=== PATIENT | male | born 1955 | race Caucasian/White ===

== ENCOUNTER 2025-03-29 08:19 | Inpatient (IN) | payer BC, MEDICARE, SELFPAY ==
[2025-03-29] VITALS (79 sets, daily range): BP systolic 105–171; BP diastolic 42–77; PULSE 54–96; RESP 11–26; TEMP 36.4–36.7; O2SAT 88–96
--- NOTE | 2025-03-29 08:15 | RT.EKG_ITS ---
APPROVED REPORT Exam: Resting ECG Reason for Exam: open heart surgery Patient Location: E HR:59 bpm ECG Measurements Heart Rate 59 AXIS CA 217 P 75 QRSd 107 QRS 41 QT 451 T 175 QTc 448 Conclusion Sinus bradycardia...rate< 60 Borderline prolonged CA interval...CA >212, V-rate 50- 90 Probable left atrial enlargement...P >50mS, <-0.10mV V1 Repol abnrm suggests ischemia, lateral leads...ST dep, T neg, I aVL V5 V6 No Occlusion NE
--- NOTE | 2025-03-29 08:30 | DI.RAD_ITS ---
Exam(s) XR PORTABLE CHEST AP EXAM: XR PORTABLE CHEST AP CLINICAL HISTORY: Chest pain TECHNIQUE: 2D digital imaging was performed of the chest. One image was obtained. An AP view was obtained. COMPARISON: No exams were available for comparison FINDINGS: MEDIASTINUM: Normal. HEART: Cardiomegaly. There is a right atrial appendage clamp. The patient is status post CABG. PULMONARY VASCULATURE: Mild pulmonary venous congestion. LUNGS: There is atelectasis in the left lung base. The right lung is clear. PLEURAL SPACE: No pleural effusion or pneumothorax. BONE:Within normal limits for the patient's age. OTHER FINDINGS:Normal. IMPRESSION: 1. Left lower lobe atelectasis. 2. Mild pulmonary venous congestion. 3. The preliminary [facility] report was reviewed. DATA REPOSITORY: RADIATION DOSE DELIVERED:
--- NOTE | 2025-03-29 08:32 | W.ED.GENAD ---
Discharge Plan Disposition Patient Disposition: Admit to [facility] Discharge Details Clinical Impression: Acute heart failure with preserved ejection fraction (HFpEF), Pleural effusion, left, Multiple pulmonary nodules, Supratherapeutic INR Primary Care Provider: Unknown,Unknown ED Provider: Bryan Lopez Laporte Meds and New Rx's Prescriptions: No Action acetaminophen 325 mg capsule 325 - 650 mg PO Q6H PRN amiodarone 200 mg tablet 200 mg PO DAILY aspirin [Adult Aspirin Regimen] 81 mg tablet,delayed release (DR/EC) 81 mg PO DAILY atorvastatin [Lipitor] 80 mg tablet 80 mg PO QHS ezetimibe 10 mg tablet 10 mg PO DAILY hydromorphone [Dilaudid] 2 mg tablet 1 - 2 mg PO Q8H PRN insulin glargine [Basaglar KwikPen U-100 Insulin] 100 unit/mL (3 mL) insulin pen 36 unit subcut QAM metoprolol succinate 25 mg tablet extended release 24 hr 75 mg PO BID nifedipine [Procardia XL] 60 mg tablet extended release 24hr 60 mg PO DAILY omeprazole 20 mg tablet,delayed release (DR/EC) 20 mg PO DAILY warfarin 1 mg tablet 1 - 7 mg PO DAILY HPI General Date/Time Provider Initiated Documentation: 03/29/25 08:32. HPI Narrative: MDM This is an afebrile and not tachycardic 69-year-old male with weight gain unintentionally of 8 pounds in 1 day with recent open heart surgery concerning for the possibility of acute CHF for which patient will undergo labs and imaging based on D-dimer results. No black or bloody stools to suggest acute anemia. Soft nontender abdomen so not suspicious for intra-abdominal infection. No dysuria or frequency to suggest UTI. No chest pain to suggest ACS. ECG shows a sinus bradycardia with first-degree AV block and interventricular conduction delay. QTc within normal limits. T wave inversions V5 V6 no prior for comparison. No acute injury pattern. No cough to suggest pneumonia. No calf pain to suggest DVT. Patient does have trace pericardial effusion which is not unexpected given recent surgery. He is not tachycardic hypoxic or hypotensive so not suspicious for tamponade. 9:37 AM Markedly elevated D-dimer greater than 2000. CBC with microcytic anemia. No thrombocytopenia. No leukocytosis. Hemoglobin 9.4 g/dL. Comprehensive metabolic panel with creatinine of 1.27. Mildly elevated LFTs. Anion gap 13. Bicarb 17. Mild hyperglycemia glucose 284 mg/dL. Will add on a venous blood gas and beta hydroxybutyrate. 10:30 AM Venous blood gas with no acidemia nor hypercarbia. 10:37 AM Elevated proBNP at 2600. Patient had 2 troponins at 175 and 165. Given delta less than 11 no concern for acute injury. Supratherapeutic INR at 3.5. Normal reassuring magnesium 1.6. Beta hydroxybutyrate 1 mmol/L reassuring against DKA. 1:15 PM Final read of CT scan showing moderate left-sided pleural effusion with adjacent infiltrate representing atelectasis or pneumonia. In the absence of cough and not suspicious for pneumonia. Patient also has small right-sided pulmonary nodules. I notified patient of his pulmonary nodules. 3:15 PM Patient spit out 1800 cc of urine thus far. I have [place] heard [place] [facility] [place] Given need for diuresis and hypoxia with ambulation I feel the patient requires hospitalization. I updated patient's sister and the patient and they felt comfortable with this plan. 4:15 PM Was in touch with Dr. Mahmood from cardiology at [facility]. He did not feel patient required transfer. Renal function is essentially at baseline with eGFR approximately 3 weeks ago at 65 and [facility] [place] system at 56 no chest pain presently. I was in touch with Dr. Tyler from the hospitalist team. He will place holding orders and patient will be admitted by the it technical architect. Will sign patient out to Dr. Reeder in the emergency department. I updated patient at bedside. HPI This is a patient with a history of coronary artery disease presenting with weight gain, shortness of breath, and diabetes. The patient underwent open heart surgery on 03/02/2025 for coronary artery disease. Post-discharge instructions included monitoring for weight gain exceeding 3 pounds in a day, which he has been unable to report due to communication issues. He experienced an 8-pound weight increase within a single day, accompanied by a lack of bowel movement or urination for approximately 12 hours. He reports a sensation of bloating in his stomach but no associated pain. He has noticed increased swelling in his left leg compared to the right, with no pain at the graft site. He is compliant with his medication regimen and reports no fevers, blood clots in his legs or lungs, or chest pain. However, he does experience sternal pain at the incision site. The patient reports difficulty in ascending stairs due to shortness of breath, attributing this to his recovery process from the surgery. He is not experiencing shortness of breath at rest and is making efforts to regain his stamina and conditioning through daily walks. The patient is diabetic and his blood sugar levels have been fluctuating. PAST SURGICAL HISTORY: Open heart surgery on 03/02/2025 for coronary artery disease. Exam General: Well-appearing in no acute distress speaking in complete sentences. Head: Normocephalic, atraumatic. Eye: Extraocular eye movements intact. No conjunctival injection. No scleral icterus. Ear, nose, mouth, throat: Grossly normal inspection. Normal voice, handling secretions normally. Neck: Trachea midline. Cardiovascular: Well-perfused distal extremities. Regular rate and rhythm Respiratory: Nonlabored respiration. Clear lungs bilaterally. Gastrointestinal: Nondistended abdomen. Musculoskeletal: Mild 1+ lower extremity nonpitting edema left greater than right. Moving all 4 extremities spontaneously. Skin: Normal for age and race, grossly normal temperature and turgor. No acute rash. Neurologic: Alert and appropriate, no apparent acute deficits. Related Data Home Medications ?Medication ?Instructions ?Recorded ?Confirmed acetaminophen 325 mg capsule 325 - 650 mg PO Q6H PRN 03/29/25 03/29/25 amiodarone 200 mg tablet 200 mg PO DAILY 03/29/25 03/29/25 aspirin 81 mg tablet,delayed 81 mg PO DAILY 03/29/25 03/29/25 release (Adult Aspirin Regimen) atorvastatin 80 mg tablet (Lipitor) 80 mg PO QHS 03/29/25 03/29/25 ezetimibe 10 mg tablet 10 mg PO DAILY 03/29/25 03/29/25 hydromorphone 2 mg tablet 1 - 2 mg PO Q8H PRN 03/29/25 03/29/25 (Dilaudid) insulin glargine 100 unit/mL (3 36 unit subcut QAM 03/29/25 03/29/25 mL) subcutaneous pen (Basaglar KwikPen U-100 Insulin) metoprolol succinate 25 mg 75 mg PO BID 03/29/25 03/29/25 tablet,extended release 24 hr nifedipine 60 mg tablet,extended 60 mg PO DAILY 12/21/25 12/21/25 release 24 hr (Procardia XL) omeprazole 20 mg tablet,delayed 20 mg PO DAILY 03/29/25 03/29/25 release warfarin 1 mg tablet 1 - 7 mg PO DAILY 03/29/25 03/29/25 Allergies Allergy/AdvReac Type Severity Reaction Status Date / Time shellfish derived Allergy Severe Anaphylaxis Verified 03/29/25 09:07 Penicillins AdvReac Unknown Unknown Verified 03/29/25 09:06 PFSH All Active Problems (Updated 03/29/25 @ 15:14 by Bryan Lopez MD) Supratherapeutic INR (Acute) Multiple pulmonary nodules (Acute) Pleural effusion, left (Acute) Acute heart failure with preserved ejection fraction (HFpEF) (Acute) Social History Smoking/Tobacco Use Status: Never Smoking risk assessment performed?: Yes Alcohol Intake: never Drug use: Never Substance use type: does not use POCUS Exam (ED) Limited Cardiac Exam DATE OF EXAM: 03/29/25 TIME OF EXAM: 10:42 PROVIDER THAT PERFORMED THE STUDY: Bryan Lopez IS THIS A REPEAT EXAM DURING THIS ENCOUNTER: no REASON FOR EXAM: Dyspnea VISUALIZED STRUCTURES: Four Chambers, Left ventricle and LVOT VIEW OBTAINED: Apical 4-Chamber, Parasternal long-axis and Subxiphoid PERTINENT FINDINGS/IMPRESSION: Pericardial effusion; No RV dilation DIFFERENTIAL DIAGNOSES: Aortic outflow track less than 4 cm, good squeeze, RV less than LV, trace pericardial effusion. No B-lines bilaterally. Exam complete
[2025-03-29 08:52] LABS: Abs Immature Grans 0.02 10^3/uL (0.0-0.06); HCT 29.5 % (40.0-50.0); HGB 9.4 g/dL (13.5-17.5); Immature Grans % 0.3 %; MCH 24.9 pg (27.0-33.0); MCHC 31.9 % (32.0-36.0); MCV 78 fL (80-95); MPV 9.7 fL (8.0-11.0); Platelet Count 331 10^3/uL (130-400); RBC 3.78 10^6/uL (4.36-5.78); RDW 14.9 % (11.8-14.1); RDW-SD 42.6 fL; WBC 6.92 10^3/uL (4.4-10.8)
[2025-03-29 09:08] LABS: Magnesium 1.6 mg/dL (1.6-2.6)
[2025-03-29 09:10] LABS: ALT 56 U/L (10-49); AST 38 U/L (<34); Albumin 4.3 g/dL (3.2-5.0); Alkaline Phosphatase 183 U/L (46-116); Anion Gap 13.5 mmol/L (3-11); BUN 24 mg/dL (9-23); Bilirubin, Total 0.6 mg/dL (0.2-1.2); CO2 17.5 mmol/L (20.0-31.0); Calcium 8.9 mg/dL (8.3-10.6); Chloride 100 mmol/L (98-107); Glucose 284 mg/dL (74-106); Potassium 4.2 mmol/L (3.5-5.1); Sodium 131 mmol/L (136-145); Total Protein 6.9 g/dL (5.7-8.2)
[2025-03-29 09:11] LABS: INR 3.5 (0.9-1.1); Prothrombin Time 32.3 sec (9.1-11.1)
[2025-03-29 09:20] LABS: D-Dimer 1460 ng/mlFEU (<500)
--- NOTE | 2025-03-29 09:30 | DI.CT_ITS ---
Exam(s) CT CHEST PE CTA EXAM: CT CHEST PE CTA CLINICAL HISTORY: Shortness of breath postop. TECHNIQUE: Imaging Protocol: Axial CT angiography was performed with multi- slice acquisition and multi-planar and/or 3D reconstructions. Lung Computer Aided Detection (CAD) was utilized. CONTRAST MATERIAL: Intravenous: Omnipaque 350 contrast volume:100 mL COMPARISON: CR,XR XR PORTABLE CHEST AP from 03/29/2025 FINDINGS: Tracheobronchial tree: Patent where visualized. No bronchiectasis. Pulmonary parenchyma: There are few noncalcified pulmonary nodules. The largest is in the periphery of the right lower lobe measures 5 mm. There is a moderate size left pleural effusion and subjacent infiltrate which may represent atelectasis. Pneumonia cannot be entirely excluded. There is atelectasis in the right lower lobe. Pulmonary Arteries: No evidence of filling defect to suggest pulmonary emboli. Mediastinum and Lyssa: No dominant adenopathy or fluid collection. The esophagus is unremarkable. Visualized thyroid gland: Unremarkable. Pleura: There is no evidence of a pneumothorax. No significant right pleural effusion is seen. Heart: The heart is enlarged. Coronary artery calcification is present. The patient is status post CABG. There is a small pericardial effusion. There is a left atrial appendage clip. Aorta: Due to the timing of the bolus, the thoracic aorta is not adequately opacified. There is atherosclerotic calcification present. The ascending thoracic aorta measures 4.2 x 3.9 cm. Upper abdomen: There appear to be stones within the gallbladder. Soft tissues: Unremarkable. Bones: The patient is status post median sternotomy. Postsurgical changes are seen in the midline of the chest.There are subacute fractures involving the posterior aspects of the right 1st and 2nd ribs. IMPRESSION: 1. There is no evidence of a pulmonary embolism. 2. Moderate left pleural effusion and subjacent infiltrate which may represent atelectasis or pneumonia. 3. Small right-sided pulmonary nodules. The largest measures 5 mm. For multiple solid noncalcified nodules smaller than 6 mm in diameter, no routine follow-up is recommended (grade 2B; weak recommendation, moderate- quality evidence). (Kelechi et al., 2017) 4. The preliminary [facility] report was reviewed. RADIATION DOSE DELIVERED: 164.49mGy.cm Total DLP DATA REPOSITORY: All CT scans at this facility are submitted to the National Radiology Data Registry (NRDR) Dose Index Registry (DIR) with the [employer] (A[employer]). RADIATION OPTIMIZATION: All CT scans at this facility use at least one of these dose optimization techniques: automated exposure control; mA and/or kV adjustment per patient size (includes targeted exams where dose is matched to clinical indication); or iterative reconstruction.
[2025-03-29 09:43] LABS: Troponin I 175 ng/L (<54)
[2025-03-29] MEDS: Normal Saline - Diluent 50 ML VIAL IJ (09:49)
[2025-03-29] MEDS: Normal Saline Flush 10 ML SYR IVP (09:49)
[2025-03-29] MEDS: Omnipaque 350 MG/ML 100 ML BTL IJ (09:50)
[2025-03-29 09:55] LABS: BE (Venous) -5 mmol/L (-2-3); HCO3 (Venous) 20 mmol/L (23-28); O2 Sat (Venous) 38 %; TCO2 (Venous) 19 mmol/L (24-29); pCO2 (Venous) 34 mmHg (41-51); pO2 (Venous) 25 mmHg
--- NOTE | 2025-03-29 09:56 | DI.[facility]_ITS ---
PROCEDURE INFORMATION: Exam: XR Chest Exam date and time: 03/29/2025 9:29 AM Age: 69 years old Clinical indication: Other: Chest pain TECHNIQUE: Imaging protocol: Radiologic exam of the chest. Views: 1 view. COMPARISON: No relevant prior studies available. FINDINGS: Limitations: Low lung volumes. Portable technique. Lungs: Prominence of the central pulmonary vasculature. Pleural spaces: Trace blunting of the costophrenic sulci. No pneumothorax. Heart/Mediastinum: Status post CABG. Left atrial appendage clip. Mild cardiomegaly. Bones/joints: Median sternotomy wires. IMPRESSION: 1. Pulmonary vascular congestion. 2. Trace bilateral pleural effusions. Dictated and Authenticated by: Lulu Carey MD. Orderin John Adams MD
--- NOTE | 2025-03-29 10:27 | DI.[facility]_ITS ---
PROCEDURE INFORMATION: Exam: CTA Chest With Contrast Exam date and time: 03/29/2025 9:56 AM Age: 69 years old Clinical indication: Other: Shortness of breath postop; Prior surgery; Surgery date: 1-6 months; Surgery type: Open heart surgery 1 month ago TECHNIQUE: Imaging protocol: Computed tomographic angiography of the chest with contrast. Exam focused on the arteries. 3D rendering (Not supervised by radiologist): MIP and/or 3D reconstructed images were created by the technologist. Contrast material: OMNIPAUQE 350; Contrast volume: 100 ml; Contrast route: INTRAVENOUS (IV); COMPARISON: CR XR PORTABLE CHEST AP 03/29/2025 9:29 AM FINDINGS: Pulmonary arteries: Normal. No pulmonary emboli. Aorta: No aortic aneurysm. Limited evaluation for aortic dissection due to timing of the contrast bolus which was optimized for detection of pulmonary emboli. Lungs: Ground-glass attenuation in the lungs. Mild smooth thickening of the interlobular septa. Moderate compressive atelectasis/partial collapse of the left lower lobe. No suspicious pulmonary nodules. Pleural spaces: Small left and trace right pleural effusions. No pneumothorax. Heart: [id number] cardiomegaly. Small pericardial effusion. Left atrial appendage clip. Coronary arteries: Status post CABG. Lymph nodes: Unremarkable. No enlarged lymph nodes. Bones/joints: Median sternotomy wires. No acute or suspicious osseous abnormalities. Anterior flowing bridging osteophytes of the spine, consistent with diffuse idiopathic skeletal hyperostosis (DISH). Soft tissues: Unremarkable. IMPRESSION: 1. No evidence of pulmonary embolism. 2. Mild CHF. 3. [id number] cardiomegaly. 4. Small left and trace right pleural effusions. 5. Moderate compressive atelectasis/partial collapse of the left lower lobe. Dictated and Authenticated by: Lulu Carey MD. Orderin John Adams MD
[2025-03-29 10:30] LABS: Lab Add On Test DONE
[2025-03-29 10:34] LABS: Troponin I 165 ng/L (<54)
[2025-03-29 10:45] LABS: Beta Hydroxybutyrate 0.66 mmol/L (0.02-0.27)
[2025-03-29] MEDS: Potassium Bicarbonate/Cit AC 25 MEQ TABLET.EFF 50 MEQ PO (13:04)
[2025-03-29] MEDS: Furosemide 40 MG/4 ML VIAL IVP (13:04)
--- NOTE | 2025-03-29 17:21 | W.PC.ACHO ---
Registration Status: REG ER Primary Language: Preferred Language: ED Information & Data Chief Complaint RespSymp 03/29/25 08:34 Chief Complaint RespSymp 03/29/25 08:23 Triage Note Pt complaining of having a 03/29/25 08:23 weight gain of 8 lbs in 1 day. PT had open heart surgery at [facility] on 03/02/25. Pt complaining of SOB with activity Most Recent Vital Signs Temperature 97.5 F L 03/29/25 08:33 Temperature Source Oral 03/29/25 08:33 Pulse 68 03/29/25 17:01 Pulse 77 03/29/25 17:01 Respiratory Rate 22 03/29/25 17:01 Respiratory Effort Short of Breath 03/29/25 08:47 Blood Pressure 132/64 03/29/25 17:01 Blood Pressure Mean 89 03/29/25 17:01 Pulse Oximetry 88 L 03/29/25 10:30 Oxygen Delivery Method Nasal Cannula 03/29/25 09:52 Oxygen Flow Rate 1 03/29/25 09:52 Allergies shellfish derived Allergy (Severe, Verified 03/29/25 09:07) Anaphylaxis Penicillins Adverse Reaction (Unknown, Verified 03/29/25 09:06) Unknown when he was 5 years old Precautions Isolation Standard precaution 03/29/25 08:34 Active Medications Generic Name Dose Route Start Last Admin Trade Name Freq PRN Reason Stop Dose Admin Iohexol 100 ml 03/29/25 10:00 03/29/25 09:50 Omnipaque 350 Mg/Ml 100 Ml Btl IJ 04/28/25 23:59 100 ml DIRECTED MAGALY Administration Sodium Chloride 0 ml 03/29/25 09:48 03/29/25 09:49 Normal Saline Flush 10 Ml Syr IVP 10 ml PRN PRN Administration Sodium Chloride 50 ml 03/29/25 10:00 03/29/25 09:49 Normal Saline - Diluent 50 Ml Vial IJ 50 ml DIRECTED MAGALY Administration IV IV Catheter Type [Right Saline Lock Antecubital] IV Catheter Gauge [Right 18 Antecubital] Diet Orders Category Date Time Status Heart Healthy Eating [DIET] Nutrition 03/29/25 Dinner Active Diagnostics 03/29/25 03/29/25 Range/Units 09:43 08:44 WBC 6.92 (4.4-10.8) 10^3/uL RBC 3.78 L (4.36-5.78) 10^6/uL Hgb 9.4 L (13.5-17.5) g/dL Hct 29.5 L (40.0-50.0) % MCV 78 L (80-95) fL MCH 24.9 L (27.0-33.0) pg MCHC 31.9 L (32.0-36.0) % RDW 14.9 H (11.8-14.1) % Plt Count 331 (130-400) 10^3/uL MPV 9.7 (8.0-11.0) fL Immature Gran % 0.3 % Neutrophils % 76.0 % Lymphocytes % 12.7 % Monocytes % 8.5 % Eosinophils % 1.6 % Basophils % 0.9 % Nucleated RBC % 0.0 (0.0-0.3) % Absolute Neutrophils 5.26 (1.2-6.7) 10^3/uL Absolute Lymphocytes 0.88 L (1.2-3.4) 10^3/uL Absolute Monocytes 0.59 (0.1-0.8) 10^3/uL Absolute Eosinophils 0.11 (0.0-0.7) 10^3/uL Absolute Basophils 0.06 (0.0-0.2) 10^3/uL PT 32.3 H (9.1-11.1) sec INR 3.5 H (0.9-1.1) D-Dimer 1460 H (<500) ng/mlFEU VBG pH 7.38 (7.31-7.41) VBG pCO2 34 L (41-51) mmHg VBG pO2 25 mmHg VBG HCO3 20 L (23-28) mmol/L VBG Total CO2 19 L (24-29) mmol/L VBG O2 Saturation 38 % VBG Base Excess -5 L (-2-3) mmol/L Sodium 131 L (136-145) mmol/L Potassium 4.2 (3.5-5.1) mmol/L Chloride 100 (98-107) mmol/L Carbon Dioxide 17.5 L (20.0-31.0) mmol/L Anion Gap 13.5 H (3-11) mmol/L BUN 24 H (9-23) mg/dL Creatinine 1.27 H (0.73-1.18) mg/dL Est GFR (CKD-EPI 2020) 56.01 (mL/min/1.73m2) Glucose 284 H (74-106) mg/dL Calcium 8.9 (8.3-10.6) mg/dL Magnesium 1.6 (1.6-2.6) mg/dL Total Bilirubin 0.6 (0.2-1.2) mg/dL AST 38 H (<34) U/L ALT 56 H (10-49) U/L Alkaline Phosphatase 183 H (46-116) U/L Troponin I 165 H* 175 H* (<54) ng/L NT-Pro-B Natriuret Pep 2622 H (<300) pg/mL Total Protein 6.9 (5.7-8.2) g/dL Albumin 4.3 (3.2-5.0) g/dL Beta-Hydroxybutyrate 0.66 H (0.02-0.27) mmol/L Add-On Test Request DONE Intake and Output - 24 Hour Total 03/29/25 08:19 thru 03/29/25 13:14 Intake Total 10 Output Total 1950 Balance -1940 Weight 216 lb 12.8 oz Intake: IV 10 Output: Urine 1950 Other: Urine Color Pale Urine Appearance Clear Urine Odor Normal Falls Risk Assessment Contributing Factors No Factors 03/29/25 08:47 Fall Total Score 0 03/29/25 08:47 Level of Risk Standard/Low Risk 03/29/25 08:47 Attestation Statement: By documenting the first initial, last name, and credentials of the reporting nurse below, both parties acknowledge that all relevant information regarding the patient handoff has been communicated, and that all questions have been addressed to ensure continuity and safety of care. Additional Patient Information/Comments: Report Received From: Daniela Costa RN
[2025-03-29] MEDS: Ondansetron 4 MG/2 ML VIAL IVP (20:26)
[2025-03-29] MEDS: Metoprolol CR 25 MG TABCR 75 MG PO (20:31)
[2025-03-29] MEDS: Atorvastatin 40 MG TAB 80 MG PO (20:31)
--- NOTE | 2025-03-29 22:31 | W.PM.HP.N ---
Date of service: 03/29/25 Time of Service: 22:31 Assessment and Plan Assessment and plan (1) Acute heart failure with preserved ejection fraction (HFpEF): Status: Acute Assessment and plan: Patient is already improving regards to symptomology with diuretic use. Continue with diuresis Daily weights monitoring for improvements. Patient is also on metoprolol and nifedipine. will consider calling patient's bid clerk in the a.m. in regards to optimization of his heart failure treatment. Specifically whether he should be on an SGL 2 I inhibitor, an ARB, and an ANRi. Concerning the patient's current BNP is elevated to 2622 will also order an echocardiogram. (2) Supratherapeutic INR: Status: Acute Assessment and plan: INR is currently 3.5. INR goal should be between 2 and 3. (3) Pleural effusion, left: Status: Acute Assessment and plan: Noted, should improve with diuresis. (4) Multiple pulmonary nodules: Status: Acute Assessment and plan: CT chest results 1. There is no evidence of a pulmonary embolism. 2. Moderate left pleural effusion and subjacent infiltrate which may represent atelectasis or pneumonia. 3. Small right-sided pulmonary nodules. The largest measures 5 mm. For multiple solid noncalcified nodules smaller than 6 mm in diameter, no routine follow-up is recommended (grade 2B; weak recommendation, moderate-quality evidence). (Kelechi et al., 2017) Per ED note, pt is aware of these findings (5) Dyslipidemia: Status: Acute Assessment and plan: Continue with atorvastatin 80 mg daily (6) Diabetes: Status: Chronic Assessment and plan: Patient is on no home Lantus 36 units. Patient does his own sliding scale At home. Will check an A1c add glucometers and sliding scale coverage. I do wonder whether patient is not on an AARON or an ARB. Will check a urinalysis to monitor for proteinuria. (7) Atrial fibrillation: Status: Chronic Assessment and plan: Patient is on amiodarone and is also on Coumadin. He is rate controlled. History of Present Illness History of Present Illness Chief Complaint: NUNES Narrative: Mr Fonseca is a 69-year-old gentleman who had a triple bypass at [facility] approximately 1 month ago And presents with worsening shortness of breath as well as increased weight over the last 24 to 48 hours. Patient states that since his surgery in very compliant with his diet recommendations but over the last 2 days he did eat pizza as well as a chicken Parmesan sandwich. Patient states that since then he has had increasing weight gain and dyspnea on exertion. Patient states that he has been taking his medications as prescribed. Patient does have a history of A-fib and was only started on Coumadin post surgery. He does have a remote history of cardiac stents placed in 2019. Upon my interview with the patient he states that he has already improved and his symptoms and feels much less short of breath. Nursing staff do note that the patient rhythm has changed from normal sinus to A-fib. Patient is a full code Review of Systems All systems reviewed & are unremarkable except as noted in HPI and below PFSH All Active Problems (Updated 03/29/25 @ 22:45 by Vishal Root MD) Atrial fibrillation (Chronic) Diabetes (Chronic) Dyslipidemia (Acute) Supratherapeutic INR (Acute) Multiple pulmonary nodules (Acute) Pleural effusion, left (Acute) Acute heart failure with preserved ejection fraction (HFpEF) (Acute) Social History Smoking/Tobacco Use Status: Never Smoking risk assessment performed?: Yes Alcohol Intake: never Drug use: Never Substance use type: does not use Housing: apartment Meds Allergies and Home Medications Allergies Allergy/AdvReac Type Severity Reaction Status Date / Time shellfish derived Allergy Severe Anaphylaxis Verified 03/29/25 09:07 Penicillins AdvReac Unknown Unknown Verified 03/29/25 09:06 Home Medications ?Medication ?Instructions ?Recorded ?Confirmed ?Type acetaminophen 325 mg capsule 325 - 650 mg PO Q6H PRN 03/29/25 03/29/25 History amiodarone 200 mg tablet 200 mg PO DAILY 03/29/25 03/29/25 History aspirin 81 mg tablet,delayed 81 mg PO DAILY 03/29/25 03/29/25 History release (Adult Aspirin Regimen) atorvastatin 80 mg tablet (Lipitor) 80 mg PO QHS 03/29/25 03/29/25 History ezetimibe 10 mg tablet 10 mg PO DAILY 03/29/25 03/29/25 History hydromorphone 2 mg tablet 1 - 2 mg PO Q8H PRN 03/29/25 03/29/25 History (Dilaudid) insulin glargine 100 unit/mL (3 36 unit subcut QAM 03/29/25 03/29/25 History mL) subcutaneous pen (Basaglar KwikPen U-100 Insulin) metoprolol succinate 25 mg 75 mg PO BID 03/29/25 03/29/25 History tablet,extended release 24 hr nifedipine 60 mg tablet,extended 60 mg PO DAILY 03/29/25 03/29/25 History release 24 hr (Procardia XL) omeprazole 20 mg tablet,delayed 20 mg PO DAILY 03/29/25 03/29/25 History release warfarin 1 mg tablet 1 - 7 mg PO DAILY 03/29/25 03/29/25 History Exam Narrative Exam Narrative: HEENT normocephalic atraumatic mucous membranes moist oropharynx is clear Neck no lymphadenopathy no JVD Cardiovascular irregularly irregular no murmur rubs gallops Lungs clear to auscultation bilaterally good air exchange no accessory muscle use Abdomen with mild protuberance Extremities 1+ lower extremity edema bilaterally Neurologic nonfocal Psych alert and oriented x 3 Results Labs 03/29/25 08:44 03/29/25 08:44 Labs: Laboratory Results - last 24 hr 03/29/25 03/29/25 08:44 09:43 WBC 6.92 RBC 3.78 L Hgb 9.4 L Hct 29.5 L MCV 78 L MCH 24.9 L MCHC 31.9 L RDW 14.9 H Plt Count 331 MPV 9.7 Immature Gran % 0.3 Neutrophils % 76.0 Lymphocytes % 12.7 Monocytes % 8.5 Eosinophils % 1.6 Basophils % 0.9 Nucleated RBC % 0.0 Absolute Neutrophils 5.26 Absolute Lymphocytes 0.88 L Absolute Monocytes 0.59 Absolute Eosinophils 0.11 Absolute Basophils 0.06 PT 32.3 H INR 3.5 H D-Dimer 1460 H VBG pH 7.38 VBG pCO2 34 L VBG pO2 25 VBG HCO3 20 L VBG Total CO2 19 L VBG O2 Saturation 38 VBG Base Excess -5 L Sodium 131 L Potassium 4.2 Chloride 100 Carbon Dioxide 17.5 L Anion Gap 13.5 H BUN 24 H Creatinine 1.27 H Est GFR (CKD-EPI 2020) 56.01 Glucose 284 H Calcium 8.9 Magnesium 1.6 Total Bilirubin 0.6 AST 38 H ALT 56 H Alkaline Phosphatase 183 H Troponin I 175 H* 165 H* NT-Pro-B Natriuret Pep 2622 H Total Protein 6.9 Albumin 4.3 Beta-Hydroxybutyrate 0.66 H Add-On Test Request DONE Last Vital Signs Temp 36.7 C 03/29/25 20:35 Pulse 77 03/29/25 20:35 Resp 18 03/29/25 20:35 BP 142/59 H 03/29/25 20:35 Pulse Ox 92 03/29/25 20:35 VTE Prohylaxis Risk Level: Moderate/High Risk Contraindications: None Prophylaxis: Pharmacologic Time Spent Time spent with Patient: 40-54 minutes Time was spent: preparing to see the patient(eg.review tests), obtaining and/or reviewing separately otained hiistory, ordering medications,tests, procedures, referring, communicating with other health family day carer, indepentently interpreting results, counseling the patient and care coordination
[2025-03-29] MEDS: Zolpidem 5 MG TAB PO (23:30)
[2025-03-29 23:43] LABS: Hemoglobin A1C 8.8 % (<5.7)
[2025-03-30] VITALS (9 sets, daily range): BP systolic 105–133; BP diastolic 53–64; PULSE 54–61; RESP 16–18; TEMP 36.7–37.2; O2SAT 89–95
[2025-03-30] MEDS: MORPHine 2 MG/ML SYR IVP (00:37)
[2025-03-30 01:13] LABS: Glucose Negative (Negative)
[2025-03-30 06:24] LABS: HCT 26.4 % (40.0-50.0); HGB 8.5 g/dL (13.5-17.5)
[2025-03-30 06:38] LABS: INR 3.6 (0.9-1.1); Prothrombin Time 33.8 sec (9.1-11.1)
[2025-03-30] MEDS: Omeprazole 20 MG CAPCR PO (06:38)
[2025-03-30 06:48] LABS: ALT 50 U/L (10-49); AST 29 U/L (<34); Albumin 3.7 g/dL (3.2-5.0); Alkaline Phosphatase 148 U/L (46-116); Anion Gap 10.2 mmol/L (3-11); BUN 17 mg/dL (9-23); Bilirubin, Total 0.5 mg/dL (0.2-1.2); CO2 24.8 mmol/L (20.0-31.0); Calcium 8.8 mg/dL (8.3-10.6); Chloride 105 mmol/L (98-107); Glucose 124 mg/dL (74-106); Potassium 3.9 mmol/L (3.5-5.1); Sodium 140 mmol/L (136-145); Total Protein 5.9 g/dL (5.7-8.2)
--- NOTE | 2025-03-30 08:34 | INITIAL_ITS ---
Date of service: 03/30/25 Time of Service: 08:34 Care Management Initial Assmt Initial Assessment Reason for Hospitalization: CHF Functional Status/Living Situation Patient Presentation: Yariel was sitting up in a chair when CM met with him. He had just completed walking a loop or two on the unit and was slightly short of breath. Yariel shared that he just had bypass surgery about a month ago and has been recuperating at his sister's home. He explained that she is a nurse and has taken really good care of him. His sister owns a ski home in [place] and she and the family have come to [place] for the holidays. Yariel lives alone in an apartment in [place], [place]. He is retired from the [employer]. He is independent at baseline and does not receive any community services. He did receive nursing for a while post- operatively but no longer needs those services. Town of Residence: [place], [place] Resides with: Alone Significant Other/Family: Out of area (Yariel is from [place] as well) Natural Supports: family Employment Status: Retired Instrumental Activities of Daily Living (ADLs): Independent Medications Medication Management: No Issues/Barriers identified Physical Functioning/Mobility Assistive Device: none Advance Directives Advance Directives: Do you have an Advance Directive: Y , 09:56 AD On File at [facility]: N 03/29/25, 09:56 Date Asked 03/29/25 03/29/25, 08:27 AD Date Reviewed COLST On File at [facility] COLST Date Scanned Code Status Resuscitation Status Full Code Portal Pt does not currently have a portal and education provided: No Portal Education: Patient declined Insurance Coverage/Financial Issues Insurance: BC/BS out of state Care Team Visit Care Team Role Provider Type Unknown Unknown Primary Care Provider STAFF PHYSICIAN Maty Reyes RDN, CDCES Other Providers MANAGER CIVIL Fritz Lazo RDN Other Providers MANAGER CIVIL Chano Reeder MD Emergency Provider [facility] STAFF PHYSICIAN Bryan Tyler Admit Provider [facility] STAFF PHYSICIAN Attending Provider Discharge Potential Discharge Needs: PCP F/U Appt Anticipated Barriers to Discharge: None Identified Patient/Family Education Needs: Review discharge instructions, discuss Ask Me Three Transportation: Private vehicle Plan: Anticipate Yariel will be discharged home with no new services when medically cleared. He will follow up with his PCP and community providers in [place] and will transport via private vehicle. CM will follow and continue to assess for discharge needs. Social Determinants of Health Screening Social Determinants of health last assessed in clinic: 03/30/25 Will the Patient Participate in the Screening?: Yes Do you worry about having a steady place to live?: no Problems where you live: no known problems In the past 12 months, have you had to go without electric, gas, oil or water in your home?: no 1. Within the past 12 months, we worried whether our food would run out before we got money to buy more.: Never true 2. Within the past 12 months, the food we bought just didn't last and we didn't have money to get more.: Never true Has lack of transportation kept you from medical appointments or from doing things needed for daily living?: no Has anyone in your life made you feel unsafe or unsupported?: no How hard is it for you to pay for the very basics like food, housing, medical care, and heating? Would you say it is:: Not hard at all Do you want help finding or keeping work or a job?: I do not need or want help If for any reason you need help with day-to-day activities such as bathing, preparing meals, shopping, managing finances, etc., do you get the help you need?: I get all the help I need How often do you feel lonely or isolated from those around you?: Never Do you speak a language other than Hebrew at home?: No Does the patient want assistance with any of the above?: No PFSH All Active Problems (Updated 03/29/25 @ 22:45 by Vihsal Root MD) Atrial fibrillation (Chronic) Diabetes (Chronic) Dyslipidemia (Acute) Supratherapeutic INR (Acute) Multiple pulmonary nodules (Acute) Pleural effusion, left (Acute) Acute heart failure with preserved ejection fraction (HFpEF) (Acute) Social History Smoking/Tobacco Use Status: Never Smoking risk assessment performed?: Yes Alcohol Intake: never Drug use: Never Substance use type: does not use Housing: apartment
[2025-03-30] MEDS: Insulin Glargine 300 UNITS/3 ML PEN 30 UNITS SC (08:39)
[2025-03-30] MEDS: Insulin Aspart 300 UNITS/3 ML PEN SC ×3 (08:40→16:49)
[2025-03-30] MEDS: Ezetimibe 10 MG TAB PO (08:56)
[2025-03-30] MEDS: NIFEdipine-CR 30 MG TABCR 60 MG PO (08:56)
[2025-03-30] MEDS: Amiodarone 200 MG TAB PO (08:57)
[2025-03-30] MEDS: Aspirin E.C. 81 MG TABEC PO (08:57)
[2025-03-30] MEDS: Metoprolol CR 25 MG TABCR 75 MG PO ×2 (08:57→20:51)
[2025-03-30] MEDS: Furosemide 40 MG/4 ML VIAL IVP ×2 (09:07→16:27)
--- NOTE | 2025-03-30 09:44 | TELEFU_ITS ---
Date of service: 03/30/25 Time of Service: 09:30 Nutrition Note NOTE: Received consult request re: diabetes ed/mgt. 69yo male. 94kg. 68 with current BMI of 31.5. IBW: 68.4kg. AjBW:78.6 Being treated for acute heart failure A1C 03/29/25 8.8%. Meds at home include 36units insulin glargine QAM, daily warfarin, ezetimibe and atorbastatin. On asprin therapy. Pt also corrects at meals with Novolog and instructed to add another 4 units if having high carb meal - he just received new insulin protocol/scale from round cutter operator at [facility] last week Electrolytes wnl today. Hgb/Hct 8.5/26.4 today. Fasting glucose 124 today and 165 at breakfast. BHC level elevated yesterday at .66. ALT at 50 today. GFR at 62. Pt lives alone in apt. Does his own shopping and food prep, although has been getting assistance as he is not cleared yet to drive self post surgery. Pt just started Ozempic within the last 4 weeks. Uses Le II CGM for monitoring glucose. Denies frequent low's. Estimated energy needs: 2176 (MSJx1.3 ambulatory factor) - suggest [id number] for weight reduction. 94g-120 protein (1.2-1.5g/kg AjBW) and 2176mL fluid (1mL per required kcal). NFPE - declined Nutrition Dx: class I obesity related to excessive kcals and metabolic dysfunction associated with diabetes AEB current BMI >30 and current requirement for insulin. Intervention: -As Yariel recently had changes to insulin management last week by endocrinology, would trend glucose/A1C with titrations as needed. Also should see improvements as GLP-1 increases. Could consider SGLT-2i for for additional cardio protectant/diabetic agent. Gave pt my contact info to reach out and call for nutrition education after discharge. Will continue to monitor intake, weight, nutrition-related labs, desire for education Time Spent in Nutritional Counseling and Treatment: 10 min
[2025-03-30] MEDS: Polyethylene Glycol 3350 17 GM PACKET PO (10:58)
--- NOTE | 2025-03-30 14:15 | PHACLINREV_ITS ---
Pharmacy Admission Review Admission Clinical Review Admission Pharmacy Review: Dyslipidemia (Acute) Supratherapeutic INR (Acute) Multiple pulmonary nodules (Acute) Pleural effusion, left (Acute) Acute heart failure with preserved ejection fraction (HFpEF) (Acute) shellfish derived Allergy (Severe, Verified 03/29/25 09:07) Anaphylaxis Penicillins Adverse Reaction (Unknown, Verified 03/29/25 09:06) Unknown Resuscitation Status Full Code Height 5 ft 8 in Weight 94 kg Comments Comments/Follow Ups: Follow up on home med questions - aspirin dose and plan for resumption of warfarin Pharmacy Admission Review Renal Dosing Renal Dosing: BUN 17 mg/dL (9-23) 03/30/25 06:00 Creatinine 1.15 mg/dL (0.73-1.18) 03/30/25 06:00 Medications needing adjustments: Reviewed (CrCl 66 mL/min) List of meds needing interventions: Current medications are okay Anticoagulation Anticoagulation: Hgb 8.5 g/dL (13.5-17.5) L 03/30/25 06:00 Hct 26.4 % (40.0-50.0) L 03/30/25 06:00 Plt Count 331 10^3/uL (130-400) 03/29/25 08:44 INR 3.6 (0.9-1.1) H 03/30/25 06:00 Creatinine 1.15 mg/dL (0.73-1.18) 03/30/25 06:00 DVT Prophylaxis: Reviewed (none at this time - takes warfarin at home, holding for now due to supratherapeutic INR) Opiate Usage Evaluate Pain Scale/Pains Meds: Reviewed (hydromorphone 1mg PO q4h PRN - no doses given) Scheduled Bowel Reg ordered if on Opiates?: No (PRN Miralax) Relevant Labs Relevant Labs: Sodium 140 mmol/L (136-145) 03/30/25 06:00 Potassium 3.9 mmol/L (3.5-5.1) 03/30/25 06:00 Chloride 105 mmol/L (98-107) 03/30/25 06:00 Magnesium 1.6 mg/dL (1.6-2.6) 03/29/25 08:44 Electrolytes, C-Reactive P, ESR: Reviewed (AST/ALT decreased from 38/56 to 29/50) DM Control DM Control: Glucose 124 mg/dL (74-106) H 03/30/25 06:00 Hemoglobin A1c 8.8 % (<5.7) H 03/29/25 08:49 Finger Stick Blood Glucose 264 1153 Finger Stick Blood Glucose 264 1124 Finger Stick Blood Glucose 264 1124 Finger Stick Blood Glucose 165 0840 Finger Stick Blood Glucose 165 0839 Finger Stick Blood Glucose 165 0832 Finger Stick Blood Glucose 165 0832 DM Control: Reviewed Insulin Dosing, Diabetic Medication: Has order for SS insulin and glargine 30 units every morning Cardiac Review Cardiac Review: Troponin I 165 ng/L (<54) H* 03/29/25 09:43 NT-Pro-B Natriuret Pep 2622 pg/mL (<300) H 03/29/25 08:44 BP, HR, EF%: Reviewed (BP WNL, HR 57, Ox 90) List meds needing interventions: Has orders for amiodarone 200mg daily, furosemide 40mg IVP BID, metoprolol XL 75mg BID and nifedipine CR 60mg daily QTc Review QTc: Reviewed (448 from 03/29/25) IV to PO Switch IV Medications: Reviewed (furosemide) Home Meds Home Med List reviewed: Intervened Relevent Home Meds Not ordered & why?: warfarin (supratherapeutic INR - reached out to provider to see what plan is for reinitiating. Waiting to hear back) Nurse brought patients home med list to pharmacy to confirm as patient had recen tly filled multiple medications (within the last 90 days) that were not on home med list. List provided was written list by patient, no changes made. Asked nurse to confirm dose of aspirin. Home med list has 81mg daily but per external fill history patient takes 325mg daily. Waiting to hear back. Current Meds Current Medication Order Review: Intervened Comments: Acetaminophen was verified as non-formulary order - changed to formulary tablets Comments Comments/Follow Ups: Follow up on home med questions - aspirin dose and plan for resumption of warfarin
--- NOTE | 2025-03-30 17:29 | PGE_ITS ---
Date of Service Date of service: 03/30/25 Time of Service: 17:29 Assessment and Plan Assessment and plan (1) Acute heart failure with preserved ejection fraction (HFpEF): Status: Acute Assessment and plan: Patient improved with diuresis, though less negative today so far. Echo done, read pending to update function after his CABG. If reduced, will pursue additional GDMT. For now, add SGLT2i. mild troponemia without dynamic changes c/w recent CABG (2) Supratherapeutic INR: Status: Acute Assessment and plan: INR remains >3, holding warfarin and follow. INR goal should be between 2 and 3. (3) Multiple pulmonary nodules: Status: Acute Assessment and plan: Patient is aware, no routine follow up imaging recommended. (4) Dyslipidemia: Status: Acute Assessment and plan: Continue with atorvastatin 80 mg daily and ezetimibe, check lipid panel in AM. Goal LDL at least <70. (5) Diabetes: Status: Chronic Assessment and plan: Poor baseline control with A1c 8.8% Patient is on home Lantus and does his own sliding scale at home. On admission slight AG and B-OH but this closed, never C/w DKA. Cardiac outcomes would be better with GLP-1 and metformin rather than insulin. With BMI>30 there is evidence for GLP-1 even in type 1 DM with CAD. Will request records to make sure this is type 2 to help guide therapy. (6) Atrial fibrillation: Status: Chronic Assessment and plan: Patient is on amiodarone and is also on warfarin. He is rate controlled. (7) Hypertension: Status: Chronic Assessment and plan: Nifedipine is an odd choice for BP control with DM and CAD, AARON/ARB would be preferred. Will discuss before changing or defer to PCP unless LVEF reduced. (8) Elevated transaminase level: Status: Acute Assessment and plan: At risk for MASLD. Stable. Follow as outpatient. Make sure hep b/c screens done (9) Microcytic anemia: Status: Acute Assessment and plan: may be contributing to CHF. Get iron studies and supplement if low. Discharge Planning Discharge Planning: Home after additional diuresis, likely 03/31 Subjective Subjective Patient reports: no new complaints, tolerating a regular diet and voiding w/o difficulty; denies diarrhea, nausea, vomiting, shortness of breath or fever Interval history since last seen: He feels better. Breathing has improved. Doesn't feel dizzy standing. no chest pain Exam Narrative Exam Narrative: GEN: Alert and oriented, NAD Cardiovascular: RRR no murmur rubs gallops Lungs: clear to auscultation bilaterally, normal effort Abdomen: soft, NT/nD Extremities: 1+ lower extremity edema bilaterally, left>R (since vein harvest), warm, no cyanosis Objective Last Vital Signs Temp 36.7 C 03/30/25 16:23 Pulse 58 L 03/30/25 16:23 Resp 18 03/30/25 16:23 BP 114/60 03/30/25 16:23 Pulse Ox 92 03/30/25 16:23 Laboratory Results - last 24 hr 03/29/25 03/30/25 03/30/25 08:49 00:57 06:00 Hgb 8.5 L Hct 26.4 L PT 33.8 H INR 3.6 H Sodium 140 Potassium 3.9 Chloride 105 Carbon Dioxide 24.8 Anion Gap 10.2 BUN 17 Creatinine 1.15 Est GFR (CKD-EPI 2020) 62.81 Glucose 124 H Hemoglobin A1c 8.8 H Calcium 8.8 Total Bilirubin 0.5 AST 29 ALT 50 H Alkaline Phosphatase 148 H Total Protein 5.9 Albumin 3.7 Urine Color Yellow Urine Clarity Clear Urine pH 6.0 Ur Specific [place] <= 1.005 Urine Protein Negative Urine Ketones Negative Urine Blood Negative Urine Nitrite Negative Urine Bilirubin Negative Urine Urobilinogen 0.2 Ur Leukocyte Esterase Negative Urine Glucose Negative VTE Prohylaxis Risk Level: Moderate/High Risk Contraindications: None Prophylaxis: Patient anticoagulated (on warfarin) Time Spent with Patient Time Spent with Patient: 35-49 minutes Time was spent: preparing to see the patient(eg.review tests), obtaining and/or reviewing separately otained hiistory, ordering medications,tests, procedures, referring, communicating with other health intensive care ambulance paramedic, indepentently interpreting results, counseling the patient and care coordination
[2025-03-30] MEDS: Atorvastatin 40 MG TAB 80 MG PO (20:51)
[2025-03-30] MEDS: Zolpidem 5 MG TAB PO (20:51)
[2025-03-30] MEDS: Insulin REGULAR-Human 100 UNITS/ML UNIT 6 UNITS SC (23:29)
[2025-03-31] VITALS (11 sets, daily range): BP systolic 98–135; BP diastolic 42–71; PULSE 46–70; RESP 16–20; TEMP 36.8–37.2; O2SAT 90–93
[2025-03-31 05:39] LABS: Microalb ug/mg Crea 31.5 ug/mg Cr
[2025-03-31 06:50] LABS: INR 2.9 (0.9-1.1); Prothrombin Time 27.5 sec (9.1-11.1)
[2025-03-31 06:54] LABS: Iron 10 ug/dL (65-175); Total Iron Binding Capacity 385 ug/dL (250-425); Transferrin Sat 3 % (20-55)
[2025-03-31 06:57] LABS: Cholesterol 65 mg/dL (<200); HDL Cholesterol 31 mg/dL (>or=40)
[2025-03-31 07:45] LABS: HCT 26.8 % (40.0-50.0); HGB 8.7 g/dL (13.5-17.5); MCH 25.4 pg (27.0-33.0); MCHC 32.5 % (32.0-36.0); MCV 78 fL (80-95); MPV 10.5 fL (8.0-11.0); Platelet Count 297 10^3/uL (130-400); RBC 3.42 10^6/uL (4.36-5.78); RDW 15.4 % (11.8-14.1); RDW-SD 43.9 fL; WBC 7.70 10^3/uL (4.4-10.8)
[2025-03-31 07:54] LABS: Magnesium 1.6 mg/dL (1.6-2.6)
[2025-03-31 07:55] LABS: Anion Gap 10.4 mmol/L (3-11); BUN 26 mg/dL (9-23); CO2 22.7 mmol/L (20.0-31.0); Calcium 8.5 mg/dL (8.3-10.6); Chloride 99 mmol/L (98-107); Glucose 175 mg/dL (74-106); Potassium 4.3 mmol/L (3.5-5.1); Sodium 132 mmol/L (136-145)
[2025-03-31] MEDS: Insulin Glargine 300 UNITS/3 ML PEN 30 UNITS SC (08:05)
[2025-03-31] MEDS: Insulin Aspart 300 UNITS/3 ML PEN SC ×4 (08:06→16:58)
--- NOTE | 2025-03-31 08:40 | CMPROGNOTE_ITS ---
Date of service: 03/31/25 Time of Service: 08:40 Care Management Progress Note Progress Note Text Progress Note Text: Yariel was sitting up in a chair when CM met with him. He was polite but a bit reserved in interaction. Yariel admitted he was a bit discouraged. He had expected that he would be further along in his recovery that he seems to feel he is. He hoped to have regained his stamina by now. He shared that his cardiac surgeon advised him to walk at least 20 minutes a day. He has been trying but feels that he is really tired at the end of the day. CM discussed his diagnosis of CHF with him. He believes it is a new diagnosis and is concerned that it is from his surgery. CM stressed the importance of daily weights and reporting weight gains of >3lbs in 1 day or 5 lbs in a week to his provider. CM also discussed dietary adjustments such as a reduction in sodium intake. Yariel stated that he was hoping to be able to be discharged home today as [place] is only 2 days away. CM reported that the provider hoped to keep him one more day for a little more diuresis and to monitor his overnight O2 saturation. Yariel stated he would be agreeable to that plan as he really wants to be better when he goes home. Discharge Potential Discharge Needs: PCP F/U Appt Anticipated Barriers to Discharge: None Identified Patient/Family Education Needs: Review discharge instructions, discuss Ask Me Three Transportation: Private vehicle Plan: Anticipate Yariel will be discharged home with no new services when medically cleared. He will follow up with his PCP and community providers in [place] and will transport via private vehicle. CM will follow and continue to assess for discharge needs. Social Determinants of Health Screening Social Determinants of health last assessed in clinic: 03/31/25 Will the Patient Participate in the Screening?: Yes Do you worry about having a steady place to live?: no Problems where you live: no known problems In the past 12 months, have you had to go without electric, gas, oil or water in your home?: no 1. Within the past 12 months, we worried whether our food would run out before we got money to buy more.: Never true 2. Within the past 12 months, the food we bought just didn't last and we didn't have money to get more.: Never true Has lack of transportation kept you from medical appointments or from doing things needed for daily living?: no Has anyone in your life made you feel unsafe or unsupported?: no How hard is it for you to pay for the very basics like food, housing, medical care, and heating? Would you say it is:: Not hard at all Do you want help finding or keeping work or a job?: I do not need or want help If for any reason you need help with day-to-day activities such as bathing, preparing meals, shopping, managing finances, etc., do you get the help you need?: I get all the help I need How often do you feel lonely or isolated from those around you?: Never Do you speak a language other than Yoruba at home?: No Does the patient want assistance with any of the above?: No
--- NOTE | 2025-03-31 08:55 | RESPIRATORY ---
Pt advised he had sleep study years ago and was diagnosed with SUKHWINDER but refused to get home machine.
[2025-03-31] MEDS: Ezetimibe 10 MG TAB PO (09:57)
[2025-03-31] MEDS: Aspirin E.C. 81 MG TABEC PO (09:57)
[2025-03-31] MEDS: FERRIC DERISOMALTOSE 1,000 MG in Normal Saline 250 ML 500 MG IVPB (09:57)
[2025-03-31] MEDS: Amiodarone 200 MG TAB PO (09:57)
[2025-03-31] MEDS: Empaglifozin 10 MG TAB PO (09:57)
[2025-03-31] MEDS: Omeprazole 20 MG CAPCR PO (09:58)
[2025-03-31] MEDS: Metoprolol CR 25 MG TABCR 75 MG PO ×2 (09:58→20:12)
[2025-03-31] MEDS: Normal Saline Flush 10 ML SYR IVP ×2 (09:58→10:21)
[2025-03-31] MEDS: NIFEdipine-CR 30 MG TABCR 60 MG PO (09:58)
[2025-03-31] MEDS: Ondansetron O.D.T. 4 MG TABEF PO (10:21)
--- NOTE | 2025-03-31 12:08 | W.NUTRFU ---
Date of service: 03/31/25 Time of Service: 12:08 Nutrition Note NOTE: Yariel still having higher glucose with fingersticks 190 at breakfast and 278 at lunch - 165 lowest mealtime glucose since admission. Pt started on cardiac dose of jardiance which may help somewhat. From previous provider notes seems like metformin and/or glp-1 may help with cardioprotection and may be considered or encouraged to consider with PCP. Currently would suggest moving from sensitive scale to moderate scale as patient is eating 100% of meals routinely and typically will add insulin coverage if having a higher carb meal at home. Moderate scale may be better at correcting and helping to cover meals. Could also consider continuing on sensitive scale with carb coverage of 1unit:30 grams carbs with titration. Will continue to monitor. Time Spent in Nutritional Counseling and Treatment: 5 min
--- NOTE | 2025-03-31 13:21 | PGE_ITS ---
Date of Service Date of service: 03/31/25 Time of Service: 13: Assessment and Plan Assessment and plan (1) Acute heart failure with preserved ejection fraction (HFpEF): Status: Acute Assessment and plan: Patient improved with diuresis initially, though urine output dropped 03/30. Increase furosemide to 80mg. Echo 03/29 read is back, confirms preserved LVEF, but some mildly decreased RV function. Looking back at [facility] records, he was on empagliflozin 25mg, lisinopril 40mg, and spironolactone 50mg prior to his CABG For now, resume SGLT2i at CHF dose. Call out at [facility] cardiology to speak to his officer captain or coverage. (2) Supratherapeutic INR: Status: Acute Assessment and plan: 2.9 today. Resume warfarin at 4mg today. INR goal should be between 2 and 3. (3) Dyslipidemia: Status: Acute Assessment and plan: LDL 24, TC 65, HDL 31 on atorvastatin 80 mg daily and ezetimibe, very low. no change. (4) Diabetes: Status: Chronic Assessment and plan: Poor baseline control with A1c 8.8%, confirms type 2 history. Patient is on home Lantus and does his own sliding scale at home. Add scheduled 5units meal time rapid and increase to moderate ISS On admission slight AG and B-OH but this closed, never C/w DKA. On semaglutide at home, should continue if he can bring it in here. He was on metformin in the past, would generally want to stay on this as well, but defer this to outpatient. Sees endocrine at [facility]. (5) Atrial fibrillation: Status: Chronic Assessment and plan: Patient is on amiodarone and is also on warfarin. He is rate controlled. (6) Hypertension: Status: Chronic Assessment and plan: Nifedipine is an odd choice for BP control with DM and CAD, AARON/ARB would be preferred. He was on lisinopril and spironolactone prior to CABG. CCB also makes leg swelling worse. I would like to cut nifedipine and add back lisinopril, but will await call back from officer captain. (7) Elevated transaminase level: Status: Acute Assessment and plan: At risk for MASLD. May also be med related (amiodarone?, statin?). Stable. Follow as outpatient. Make sure hep b/c screens done (8) Microcytic anemia: Status: Acute Assessment and plan: may be contributing to CHF. Iron low at 4% trans sat. He denies active bleeding. On PPI. Give IV iron after discussion today. (9) Multiple pulmonary nodules: Status: Acute Assessment and plan: Patient is aware, no routine follow up imaging recommended. Discharge Planning Discharge Planning: needs additional diuresis, possibly 04/01 Subjective Subjective Patient reports: denies diarrhea, vomiting or fever Interval history since last seen: Legs are less swollen, but he isn't urinating as much as he did the first night. No chest pain. No bleeding or melena noted. Exam Narrative Exam Narrative: GEN: Alert and oriented, NAD Cardiovascular: RRR no murmur rubs gallops Lungs: clear except bibasilar rales, normal effort Abdomen: soft, NT/nD Extremities: 1+ lower extremity edema bilaterally, left>R (since vein harvest), warm, no cyanosis Objective Last Vital Signs Temp 36.9 C 03/31/25 11:07 Pulse 68 03/31/25 12:30 Resp 18 03/31/25 12:30 BP 135/67 03/31/25 11:07 Pulse Ox 93 03/31/25 12:30 Laboratory Results - last 24 hr 03/31/25 03/31/25 03/31/25 02:01 05:11 05:47 WBC 7.70 RBC 3.42 L Hgb 8.7 L Hct 26.8 L MCV 78 L MCH 25.4 L MCHC 32.5 RDW 15.4 H Plt Count 297 MPV 10.5 PT 27.5 H INR 2.9 H VBG pH Cancelled VBG pCO2 Cancelled VBG pO2 Cancelled VBG HCO3 Cancelled VBG Total CO2 Cancelled VBG O2 Saturation Cancelled VBG Base Excess Cancelled Sodium 132 L Potassium 4.3 Chloride 99 Carbon Dioxide 22.7 Anion Gap 10.4 BUN 26 H Creatinine 1.49 H Est GFR (CKD-EPI 2020) 46.58 Glucose 175 H Calcium 8.5 Magnesium 1.6 Iron 10 L TIBC 385 Transferrin % Sat 3 L Triglycerides 52 Total Cholesterol 65 LDL Cholesterol, Calc 23.5 HDL Cholesterol 31 L Ur Creatinine mg/dL 115.70 Ur Microalbumin mg/L 36.4 Microalb/Creat Ratio 31.5 VTE Prohylaxis Risk Level: Moderate/High Risk Contraindications: None Prophylaxis: Patient anticoagulated (on warfarin) Time Spent with Patient Time Spent with Patient: 35-49 minutes Time was spent: preparing to see the patient(eg.review tests), obtaining and/or reviewing separately otained hiistory, ordering medications,tests, procedures, referring, communicating with other health critical care specialist, indepentently interpreting results, counseling the patient and care coordination
--- NOTE | 2025-03-31 14:16 | CHAPLAIN ---
Yariel was sitting up in bed when I visited. He explained that he's from [place], [place] and is staying in [facility] with his sister [place] ski [place]. He had bypass surgery about a month ago and was recuperating with his sister, who is a nurse, and traveled with her to [facility]. Yariel said his family is checking in on him and visiting. I explained my role and offered support.
[2025-03-31] MEDS: Furosemide 40 MG/4 ML VIAL 80 MG IVP (16:26)
[2025-03-31] MEDS: Warfarin 4 MG TAB PO (20:12)
[2025-03-31] MEDS: Atorvastatin 40 MG TAB 80 MG PO (20:12)
[2025-03-31] MEDS: Zolpidem 5 MG TAB PO (20:14)
[2025-04-01] VITALS (7 sets, daily range): BP systolic 115–124; BP diastolic 62–71; PULSE 61–68; RESP 17–19; TEMP 36.8–36.9; O2SAT 82–97
[2025-04-01] MEDS: Omeprazole 20 MG CAPCR PO (06:40)
[2025-04-01 06:54] LABS: HCT 28.7 % (40.0-50.0); HGB 9.2 g/dL (13.5-17.5)
[2025-04-01 06:56] LABS: INR 2.1 (0.9-1.1); Prothrombin Time 19.7 sec (9.1-11.1)
[2025-04-01 07:14] LABS: ALT 53 U/L (10-49); AST 25 U/L (<34); Albumin 3.8 g/dL (3.2-5.0); Alkaline Phosphatase 160 U/L (46-116); Anion Gap 12.8 mmol/L (3-11); BUN 18 mg/dL (9-23); Bilirubin, Total 0.5 mg/dL (0.2-1.2); CO2 25.2 mmol/L (20.0-31.0); Calcium 9.2 mg/dL (8.3-10.6); Chloride 104 mmol/L (98-107); Glucose 177 mg/dL (74-106); Potassium 3.5 mmol/L (3.5-5.1); Sodium 142 mmol/L (136-145); Total Protein 6.2 g/dL (5.7-8.2)
[2025-04-01] MEDS: Empaglifozin 10 MG TAB PO (08:30)
[2025-04-01] MEDS: NIFEdipine-CR 30 MG TABCR 60 MG PO (08:30)
[2025-04-01] MEDS: Aspirin E.C. 81 MG TABEC PO (08:30)
[2025-04-01] MEDS: Amiodarone 200 MG TAB PO (08:30)
[2025-04-01] MEDS: Metoprolol CR 25 MG TABCR 75 MG PO (08:30)
[2025-04-01] MEDS: Ezetimibe 10 MG TAB PO (08:31)
[2025-04-01] MEDS: Furosemide 40 MG/4 ML VIAL 80 MG IVP (08:31)
[2025-04-01] MEDS: Normal Saline Flush 10 ML SYR IVP (08:31)
[2025-04-01] MEDS: Insulin Aspart 300 UNITS/3 ML PEN SC ×2 (08:31→08:32)
[2025-04-01] MEDS: Insulin Glargine 300 UNITS/3 ML PEN 30 UNITS SC (08:32)
--- NOTE | 2025-04-01 12:09 | DSE_ITS ---
Date of service: 04/01/25 Time of Service: 08:00 DS: Diagnosis Discharge Diagnosis (1) Acute heart failure with preserved ejection fraction (HFpEF): Status: Acute (2) Supratherapeutic INR: Status: Deleted (3) Dyslipidemia: Status: Acute (4) Diabetes: Status: Chronic (5) Atrial fibrillation: Status: Chronic (6) Hypertension: Status: Chronic (7) Elevated transaminase level: Status: Acute (8) Microcytic anemia: Status: Acute (9) Multiple pulmonary nodules: Status: Acute Discharge Plan Disposition Patient Disposition: Home Anticipated Discharge Date/Time: 04/01/25 12:00 Condition: Improving Discharge Details Reason For Visit: CHF, CAD Admit Date/Time: 03/29/25 16:26 Admit Provider: Bryan Tyler Attending Provider: Bryan Tyler Primary Care Provider: Unknown,Unknown Hospital Course Hospital Course: 69 yo M with h/o CAD s/p CABG 03/02/25 at [facility] who presented with acute LE edema and shortness of breath. He was found to be hypoxic. CTA was negative for PE but did show left pleaural effusion and atelectasis vs pneumonia. He had no symptoms of infection and he was given diuresis. His hypoxia resolved. He had an echocardiogram Mar 30 which showed LVEF 55-60%, suggestive of moderate tricuspid regurgitation. His INR was >3 and his warfarin was held during his admission, to be resumed at home. Patient should resume his home medications and see his cardiovascular providers [place] [facility] He was on furosemide 80 mg IV BID while hospitalized; he is discharged on furosemide 20 mg PO daily. Home Meds and New Rx's Prescriptions: New furosemide [Lasix] 20 mg tablet 20 mg PO DAILY Qty: 30 0RF Continued acetaminophen 325 mg capsule 325 - 650 mg PO Q6H PRN amiodarone 200 mg tablet 200 mg PO DAILY aspirin [Adult Aspirin Regimen] 81 mg tablet,delayed release (DR/EC) 81 mg PO DAILY atorvastatin [Lipitor] 80 mg tablet 80 mg PO QHS ezetimibe 10 mg tablet 10 mg PO DAILY hydromorphone [Dilaudid] 2 mg tablet 1 - 2 mg PO Q8H PRN insulin glargine [Basaglar KwikPen U-100 Insulin] 100 unit/mL (3 mL) insulin pen 36 unit subcut QAM metoprolol succinate 25 mg tablet extended release 24 hr 75 mg PO BID nifedipine [Procardia XL] 60 mg tablet extended release 24hr 60 mg PO DAILY omeprazole 20 mg tablet,delayed release (DR/EC) 20 mg PO DAILY warfarin 1 mg tablet 1 - 7 mg PO DAILY Discharge Instructions Instructions: Warfarin Stand Alone Forms: Portal Information, Nursing Discharge Form Referrals: [facility] [Other] Referral Note: Please call you PCP to set up a follow up appointment. Activity:: Activity as Tolerated Equipment/Supplies:: No Equipment Needed Diet:: As Tolerated Discharge Orders Discharge Orders: Discharge Order (Routine); Ordered 04/01/25 Ordered By: Law Forrester Discharge Data Discharge Date/Time-TO BE ENTERED AT DEPARTURE: 04/01/25 14:30 DS: Summary Time Spent with Patient providing and/or coordinating discharge services: Less than 30 minutes Status at Discharge Functional status at discharge: independent ambulation Overall status at discharge: patient is back to baseline Mental Status: mental status grossly normal Speech and Movement: speech and movement normal Mood: congruent mood Affect: normal affect Exam Narrative Exam Narrative: GEN: Alert and oriented, NAD Cardiovascular: RRR no murmur rubs gallops Lungs: clear except bibasilar rales, normal effort Abdomen: soft, NT/nD Extremities: 1+ lower extremity edema bilaterally, left>R (since vein harvest), warm, no cyanosis Psych Mental Status: mental status grossly normal Speech and Movement: speech and movement normal Mood: congruent mood Affect: normal affect DS: Data Vitals/I&O Vitals and I&O: Vital Signs Temperature 36.8 C 04/01/25 11:53 Temperature Source Temporal Artery Scan 04/01/25 11:53 Pulse 68 04/01/25 11:53 Pulse 77 03/29/25 17:01 Respiratory Rate 19 04/01/25 11:53 Respiratory Effort Short of Breath 03/29/25 08:47 Blood Pressure 115/62 04/01/25 11:53 Blood Pressure Mean 79 04/01/25 11:53 Pulse Oximetry 92 04/01/25 11:53 Oxygen Delivery Method Room Air 04/01/25 11:53 Oxygen Flow Rate 0 04/01/25 11:53 Pain Level 0 04/01/25 03:34 Comment the nurse has been notified about low BP. 03/31/25 23:10 Intake & Output 1204/01/25 04/01/25 23:59 11:59 23:59 Intake Total 1210 / 2380 1600 / 1600 Output Total 4150 / 5375 3575 / 3575 Balance -2940 / -2995 -1974 / Weight 94.3 kg Intake: Oral 1210 / 2120 1600 / 1600 Output: Urine 4150 / 5375 5135 / 3573 Other: Urine Color Pale Pale Urine Appearance Clear Clear Urine Odor Normal Normal Stool Size Small Stool Characteristics Formed Brown Data Completed and Pending Pending Labs at Discharge: 03/29/25 03/29/25 03/29/25 08:44 08:49 09:43 WBC 6.92 RBC 3.78 L Hgb 9.4 L Hct 29.5 L MCV 78 L MCH 24.9 L MCHC 31.9 L RDW 14.9 H Plt Count 331 MPV 9.7 Immature Gran % 0.3 Neutrophils % 76.0 Lymphocytes % 12.7 Monocytes % 8.5 Eosinophils % 1.6 Basophils % 0.9 Nucleated RBC % 0.0 Absolute Neutrophils 5.26 Absolute Lymphocytes 0.88 L Absolute Monocytes 0.59 Absolute Eosinophils 0.11 Absolute Basophils 0.06 PT 32.3 H INR 3.5 H D-Dimer 1460 H VBG pH 7.38 VBG pCO2 34 L VBG pO2 25 VBG HCO3 20 L VBG Total CO2 19 L VBG O2 Saturation 38 VBG Base Excess -5 L Sodium 131 L Potassium 4.2 Chloride 100 Carbon Dioxide 17.5 L Anion Gap 13.5 H BUN 24 H Creatinine 1.27 H Est GFR (CKD-EPI 2020) 56.01 Glucose 284 H Hemoglobin A1c 8.8 H Calcium 8.9 Magnesium 1.6 Iron TIBC Transferrin % Sat Total Bilirubin 0.6 AST 38 H ALT 56 H Alkaline Phosphatase 183 H Troponin I 175 H* 165 H* NT-Pro-B Natriuret Pep 2622 H Total Protein 6.9 Albumin 4.3 Triglycerides Total Cholesterol LDL Cholesterol, Calc HDL Cholesterol Beta-Hydroxybutyrate 0.66 H Urine Color Urine Clarity Urine pH Ur Specific [place] Urine Protein Urine Ketones Urine Blood Urine Nitrite Urine Bilirubin Urine Urobilinogen Ur Leukocyte Esterase Ur Creatinine mg/dL Ur Microalbumin mg/L Microalb/Creat Ratio Urine Glucose Add-On Test Request DONE 03/30/25 03/30/25 03/31/25 00:57 06:00 02:01 WBC RBC Hgb 8.5 L Hct 26.4 L MCV MCH MCHC RDW Plt Count MPV Immature Gran % Neutrophils % Lymphocytes % Monocytes % Eosinophils % Basophils % Nucleated RBC % Absolute Neutrophils Absolute Lymphocytes Absolute Monocytes Absolute Eosinophils Absolute Basophils PT 33.8 H INR 3.6 H D-Dimer VBG pH Cancelled VBG pCO2 Cancelled VBG pO2 Cancelled VBG HCO3 Cancelled VBG Total CO2 Cancelled VBG O2 Saturation Cancelled VBG Base Excess Cancelled Sodium 140 Potassium 3.9 Chloride 105 Carbon Dioxide 24.8 Anion Gap 10.2 BUN 17 Creatinine 1.15 Est GFR (CKD-EPI 2020) 62.81 Glucose 124 H Hemoglobin A1c Calcium 8.8 Magnesium Iron TIBC Transferrin % Sat Total Bilirubin 0.5 AST 29 ALT 50 H Alkaline Phosphatase 148 H Troponin I NT-Pro-B Natriuret Pep Total Protein 5.9 Albumin 3.7 Triglycerides Total Cholesterol LDL Cholesterol, Calc HDL Cholesterol Beta-Hydroxybutyrate Urine Color Yellow Urine Clarity Clear Urine pH 6.0 Ur Specific [place] <= 1.005 Urine Protein Negative Urine Ketones Negative Urine Blood Negative Urine Nitrite Negative Urine Bilirubin Negative Urine Urobilinogen 0.2 Ur Leukocyte Esterase Negative Ur Creatinine mg/dL Ur Microalbumin mg/L Microalb/Creat Ratio Urine Glucose Negative Add-On Test Request 03/31/25 03/31/25 04/01/25 05:11 05:47 06:08 WBC 7.70 RBC 3.42 L Hgb 8.7 L 9.2 L Hct 26.8 L 28.7 L MCV 78 L MCH 25.4 L MCHC 32.5 RDW 15.4 H Plt Count 297 MPV 10.5 Immature Gran % Neutrophils % Lymphocytes % Monocytes % Eosinophils % Basophils % Nucleated RBC % Absolute Neutrophils Absolute Lymphocytes Absolute Monocytes Absolute Eosinophils Absolute Basophils PT 27.5 H 19.7 H INR 2.9 H 2.1 H D-Dimer VBG pH VBG pCO2 VBG pO2 VBG HCO3 VBG Total CO2 VBG O2 Saturation VBG Base Excess Sodium 132 L 142 D Potassium 4.3 3.5 Chloride 99 104 Carbon Dioxide 22.7 25.2 Anion Gap 10.4 12.8 H BUN 26 H 18 Creatinine 1.49 H 1.25 H Est GFR (CKD-EPI 2020) 46.58 57.05 Glucose 175 H 177 H Hemoglobin A1c Calcium 8.5 9.2 Magnesium 1.6 Iron 10 L TIBC 385 Transferrin % Sat 3 L Total Bilirubin 0.5 AST 25 ALT 53 H Alkaline Phosphatase 160 H Troponin I NT-Pro-B Natriuret Pep Total Protein 6.2 Albumin 3.8 Triglycerides 52 Total Cholesterol 65 LDL Cholesterol, Calc 23.5 HDL Cholesterol 31 L Beta-Hydroxybutyrate Urine Color Urine Clarity Urine pH Ur Specific [place] Urine Protein Urine Ketones Urine Blood Urine Nitrite Urine Bilirubin Urine Urobilinogen Ur Leukocyte Esterase Ur Creatinine mg/dL 115.70 Ur Microalbumin mg/L 36.4 Microalb/Creat Ratio 31.5 Urine Glucose Add-On Test Request PFSH All Active Problems (Updated 04/02/25 @ 00:01 by REVA PEOPLES) Microcytic anemia (Acute) Elevated transaminase level (Acute) Hypertension (Chronic) Atrial fibrillation (Chronic) Diabetes (Chronic) Dyslipidemia (Acute) Multiple pulmonary nodules (Acute) Acute heart failure with preserved ejection fraction (HFpEF) (Acute) Social History Smoking/Tobacco Use Status: Never Smoking risk assessment performed?: Yes Alcohol Intake: never Drug use: Never Substance use type: does not use Housing: apartment Time Spent with Patient Time Spent with Patient: <45 minutes Time was spent: preparing to see the patient(eg.review tests), obtaining and/or reviewing separately otained hiistory, ordering medications,tests, procedures, referring, communicating with other health administrator health care facility, indepentently interpreting results, counseling the patient and care coordination
--- NOTE | 2025-04-01 13:49 | PDOC.CMDIS ---
Date of service: 04/01/25 Time of Service: 13:49 LACE Index Scoring Tool Questions: Length of Stay (in days): 3 Was the patient admitted via the E.D.?: Yes Comorbidities: Diabetes w/o Complication and Congestive Heart Failure E.D. Visits: 1 Answers: Total Score: 10 Risk of Readmission: High Risk Care Management Discharge Plan Reason for Hospitalization: CHF Discharge Plan: Yariel was discharged home this afternoon with no new services. He will f/u with his PCP in [place] and per his plan of care. Yariel was transported home by his sister. Patient/Family Education Needs: Review of discharge instructions, activity, limitations and discuss Ask me 3.
== END 2025-04-01 14:30 | disposition home or self-care (01) | DRG 291 ==
LOC: ER 16:44 → MS 17:21
PROVIDERS: Emergency Medicine; Hospitalist; Admitting Provider Family Medicine; Emergency Provider General Practice; Responsible Provider Family Medicine; Visit Provider Family Medicine
DX: I11.0 Hypertensive heart disease with heart failure (principal); I50.31 Acute diastolic (congestive) heart failure; I48.20 Chronic atrial fibrillation, unspecified; R79.1 Abnormal coagulation profile; R91.8 Other nonspecific abnormal finding of lung field; E78.5 Hyperlipidemia, unspecified; D50.9 Iron deficiency anemia, unspecified; R74.01 Elevation of levels of liver transaminase levels; I25.10 Atherosclerotic heart disease of native coronary artery without angina pectoris; I07.1 Rheumatic tricuspid insufficiency; E11.9 Type 2 diabetes mellitus without complications; Z79.01 Long term (current) use of anticoagulants; Z79.899 Other long term (current) drug therapy; Z95.1 Presence of aortocoronary bypass graft; Z95.5 Presence of coronary angioplasty implant and graft; Z79.4 Long term (current) use of insulin
CPT/HCPCS: 00123; 36415; 71275; 80048; 80053; 80061; 82010; 82805; 85027; 93005; 93308; 96374; 99285; 71045; 81003; 82043; 82570; 83036; 83540; 83550; 83735; 83880; 84484; 85014; 85018; 85025; 85379; 85610; 93010; 93306; 94760; 99222; 99232; 99238; J1437; J1815; J1938; J2270; J2405; J3490